=== PATIENT | female | born 1955 | race Caucasian/White ===

== ENCOUNTER 2023-07-29 18:16 | Emergency (ER) | payer MEDICARE, OTHER, SELFPAY ==
[2023-07-29 18:16] VITALS: BMI 25.1
[2023-07-29 18:34] VITALS: BP 196/111
[2023-07-29 19:10] LABS: % Basophils 0.5 % (0-2); % Eosinophils 1.7 % (0-6); % Immature Granulocytes 0.3 % (0-0.5); % Lymphocytes 22.7 % (20.5-51.1); % Monocytes 6.9 % (1.7-9.3); % Neutrophils 67.9 % (42.2-75.2); Absolute Eosinophils 0.1 10^3/uL (0-0.7); Absolute Lymphocytes 1.5 10^3/uL (1.2-3.4); Absolute Monocytes 0.5 10^3/uL (0.1-0.6); Absolute Neutrophils 4.5 10^3/uL (1.4-6.5); Hematocrit 38.3 % (37.0-47.0); Hemoglobin 13.2 g/dL (12.0-16.0); Mean Corp Hgb Conc. 34.5 g/dL (33.0-37.0); Mean Corpuscular Hgb 31.4 pg (27.0-31.0); Mean Corpuscular Volume 91.2 fL (81.0-99.0); Mean Platelet Volume 12.3 fL (7.4-10.4); Nucleated Red Blood Cells % 0 %; Platelet Count 161 10^3/uL (130-400); Red Cell Dist. Width 13.9 % (11.5-14.5); White Blood Cell Count 6.7 10^3/uL (4.8-10.8)
[2023-07-29 19:13] LABS: ALT (SGPT) 24 U/L (0-35); AST (SGOT) 26 U/L (14-36); Albumin 4.3 g/dl (3.5-5.0); Alkaline Phosphatase 59 U/L (38-126); Blood Urea Nitrogen 15 mg/dl (7-17); Calcium 9.1 mg/dl (8.4-10.2); Carbon Dioxide 30 mmol/L (22-30); Chloride 103 mmol/L (98-107); Glucose 137 mg/dl (70-99); Potassium 4.1 mmol/L (3.5-5.1); Sodium 137 mmol/L (135-145); Total Bilirubin 0.6 mg/dl (0.2-1.3); Total Protein 7.2 g/dl (6.3-8.2); eGFR > 60.00
[2023-07-29 22:02] VITALS: BP 163/107
[2023-07-29 22:30] VITALS: BP 142/100
[2023-07-29 23:17] LABS: Troponin I < 0.012 ng/ml
[2023-07-30 00:06] VITALS: BP 138/97
[2023-07-30 00:30] VITALS: BP 128/95
[2023-07-30 01:00] VITALS: BP 133/95
[2023-07-30 01:24] VITALS: BP 135/94
[2023-07-30 01:30] VITALS: BP 129/96
--- NOTE | 2023-07-30 01:40 | ED.GENMED ---
History of Present Illness
General
Chief Complaint: Dizziness
Source: patient
Exam Limitations: none
Time Seen by Provider: 07/29/23 22:09
Nursing documentation reviewed up to this point in time: agreed with
Travel History
Have you had any contact with someone who has COVID-19?: No
Do you have any symptoms of coronavirus? Fever > 100 degrees, chills, cough, shortness of breath, sore throat, loss of taste or smell, muscle aches, or headache?: No
History of Present Illness
History of Present Illness:
Patient presents to ED secondary to sudden onset of dizziness, when standing up as well as when turning her head to the side this morning. In addition, when she checked her blood pressure, it was extremely elevated. Denies headache. Denies
blurred vision. Denies loss of sensation or weakness. Denies chest pain or shortness of breath. Denies nausea or vomiting. Denies previous history of similar symptoms. Denies recent illness. No recent change in medications or diet. Patient
does not take any medication for high blood pressure.
Review of Systems
Review of Systems
Allergies reviewed?: Yes
All Other Systems: ROS reviewed and negative except as documented in HPI and ROS
Constitutional: Reports no symptoms
EENT: Reports no symptoms
Respiratory: Reports no symptoms
Cardiac: Reports no symptoms
ABD/GI: Reports nausea and vomiting
: Reports no symptoms
Musculoskeletal: Reports no symptoms
Skin: Reports no symptoms
Neurological: Reports dizzy
Phy Exam
Physical Exam
Physical Exam:
Physical Exam
General: no apparent distress, not acutely ill. afebrile. hypertensive
Head: nc/at. eomi. no nystagmus noted.
Neck: supple. no meningeal signs.
Heart: s1/s2 regular rate and rhythm, no murmur. equal radial pulses.
Lungs: no acute respiratory distress. clear bilaterally
Abdomen: normal bowel sounds. not tender.
Neuro: alert and oriented. no focal neurological deficits
Skin: no rash
Psychiatric: well kept. interactive and cooperative
Extremities: no edema. no calf tenderness.
Course
Orders/Labs/Results
Orders:
Orders
07/29/23 18:39
Electrocardiogram (*1) Urgent
Reason for Study: Hypertension, Benign
EKG- Treatment ONCE
07/29/23 18:52
Complete Blood Count/With Diff Urgent
Comprehensive Metabolic Panel Urgent
07/29/23 22:46
Troponin I Urgent
07/30/23 00:45
CT Head W/o Iv Contrast Urgent
Reason For Exam: dizziness with elevated BP
Abnormal Lab Results
07/29/23
18:52
MCH 31.4 H pg
(27.0-31.0)
MPV 12.3 H fL
(7.4-10.4)
Glucose 137 H mg/dl
(70-99)
07/29/23 18:52
07/29/23 18:52
Vital Signs
Initial and Last Documented VS:
Initial Vital Signs
Temp Pulse Resp BP Pulse Ox
98.7 F 73 18 196/111 96
07/29/23 18:34 07/29/23 18:34 07/29/23 18:34 07/29/23 18:34 07/29/23 18:34
Last Documented Vital Signs
Temp Pulse Resp BP Pulse Ox
98.7 F 73 18 129/96 96
07/29/23 18:34 07/29/23 18:34 07/29/23 18:34 07/30/23 01:30 07/29/23 22:38
MDM/Problems Addressed
MDM/Problems Addressed:
CT head: No acute findings.
Patient with spontaneous improvement of blood pressure, along with resolution of dizziness. Patient is able to ambulate independently, with steady gait, without any difficulty prior to discharge. Patient's presenting symptoms concerning for
hypertensive urgency versus vertigo. As patient's blood pressure has normalized, do not feel that any medication treatment is warranted at this time. Advised keeping daily log of blood pressure over the next 1 week, along with PCP follow-up as an
outpatient. Advised to return to ED with any recurrent symptoms. Patient expresses understanding, at time of discharge to the care of her family.
*Critical Care Note
Total Time (30-74mins, 75-104mins- exclusive of procedures): Not Applicable
ED Attending Note
-
Portions of this chart may have been created with voice recognition software.� Occasional wrong word or��sound alike� substitutions may have occurred due to the inherent limitations of voice recognition software.
Discharge Plan
Departure
Patient Disposition: Home (Routine Discharge)
Date of Disposition: 07/30/23
Time of Disposition: 01:40
Patient with high blood pressure during this ER visit?: Yes
Condition: Good
Discharge Problem:
Hypertension, Dizziness
Instructions: High Blood Pressure ED, Dizziness
Referrals:
Adriana Spear CRNP [Family Provider] -
Activity Restrictions/Additional Instructions:
As discussed, please follow-up with your primary care physician for further evaluation and treatment. Please keep daily log of your blood pressure.
Interventions
Interventions:
*Risk Screen - Suicide Last Done: 07/29/23 18:34
*General Assessment Last Done: 07/29/23 18:34
*Neglect/Abuse Screening Last Done: 07/29/23 18:34
ED- Fall Risk Assessment Last Done: 07/29/23 22:32
*ED COVID-19 Vaccine History Last Done: 07/30/23 01:50
*Nursing Disposition Last Done: 07/30/23 01:50
ED- Neurological Assessment Last Done: 07/29/23 22:32
ED- Cardiac Assessment Last Done: 07/29/23 22:32
ED Swallowing Screen Last Done: 07/30/23 00:01
Discharge Date and Time
Discharge Date/Time: 07/30/23 01:51
Print Language: NEPALI
== END 2023-07-30 01:51 | disposition home or self-care (01) ==
LOC: EMR 18:16
PROVIDERS: Emergency Medicine; EMERGENCY PHYSICIAN Emergency Medicine; FAMILY PHYSICIAN Nurse Practitioner Adult Health
DX: R42 Dizziness and giddiness (principal); I10 Essential (primary) hypertension
CPT/HCPCS: 99285; 70450; 80053; 84484; 85025; 93005

== ENCOUNTER → 2023-12-27 12:45 | Outpatient (REF) | payer MEDICARE, OTHER, SELFPAY | LOC: WDC 12:45 | PROVIDERS: ATTENDING PHYSICIAN Nurse Practitioner Adult Health | DX: M81.0 Age-related osteoporosis without current pathological fracture (principal); Z12.31 Encounter for screening mammogram for malignant neoplasm of breast | CPT/HCPCS: 77063; 77067; 77080 ==

== ENCOUNTER → 2024-12-26 09:31 | Outpatient (REF) | payer MEDICARE, OTHER, SELFPAY | LOC: RST 09:31 | PROVIDERS: ATTENDING PHYSICIAN Nurse Practitioner Adult Health | DX: R13.10 Dysphagia, unspecified (principal) | CPT/HCPCS: 74230; 92611 ==

== ENCOUNTER → 2025-01-01 09:17 | Outpatient (REF) | payer MEDICARE, OTHER, SELFPAY | LOC: RAD 09:17 | PROVIDERS: ATTENDING PHYSICIAN Urology; FAMILY PHYSICIAN Nurse Practitioner Adult Health | DX: N32.81 Overactive bladder (principal) | CPT/HCPCS: 76770; 76856 ==

== ENCOUNTER → 2025-01-19 09:15 | Outpatient (REF) | payer MEDICARE, OTHER, SELFPAY | LOC: DHSLP 09:15 | PROVIDERS: ATTENDING PHYSICIAN Nurse Practitioner Adult Health | DX: G47.33 Obstructive sleep apnea (adult) (pediatric) (principal); R09.02 Hypoxemia | CPT/HCPCS: 95806 ==